=== PATIENT | male | born 1980 | race American Indian/Alaskan Native ===

== ENCOUNTER 2016-09-02 17:50 | Emergency (ER) | payer SELFPAY ==
[~2016-09-02 17:50] MED LIST: AMLO5TAB2 PO; LISI2.5T PO; METH750T87 PO; OXYC-302 PO
[2016-09-02] MEDS ORDERED: ONDANSETRON ODT 4 MG ONE (19:19)
== END 2016-09-02 19:51 | disposition home or self-care (01) ==
LOC: ED 17:50
DX: M54.16 Radiculopathy, lumbar region (principal); G89.29 Other chronic pain; M54.5 Low back pain
CPT/HCPCS: 99283

== ENCOUNTER 2017-01-27 17:03 | Emergency (ER) | payer OTHER ==
[~2017-01-27] VITALS: Ht 175.3 cm; Wt 116.3 kg
[2017-01-27 17:07] VITALS: BP 170/104
[2017-01-27] MEDS ORDERED: KETOROLAC 30 MG/1 ML IM ONE (17:30)
[2017-01-27] MEDS ORDERED: KETOROLAC 30 MG/1 ML ONE (19:42)
== END 2017-01-27 20:01 | disposition home or self-care (01) ==
LOC: ED 19:55
DX: S39.012A Strain of muscle, fascia and tendon of lower back, initial encounter (principal); M54.42 Lumbago with sciatica, left side; M54.41 Lumbago with sciatica, right side; G89.29 Other chronic pain; M54.5 Low back pain; I10 Essential (primary) hypertension; Z90.49 Acquired absence of other specified parts of digestive tract; X50.3XXA Overexertion from repetitive movements, initial encounter; Y93.89 Activity, other specified; Y92.89 Other specified places as the place of occurrence of the external cause; Y99.8 Other external cause status
CPT/HCPCS: 96372; 99283; J1885; J7512